=== PATIENT | female | born 1965 | race African-American/Black ===

== ENCOUNTER 2020-05-06 09:30 | Outpatient (CLI) | payer MEDICAID ==
[2020-04-15 17:08] VITALS: BMI 18.9
[~2020-05-06 09:30] MED LIST: CATAPRES0.1 MG PO; IBUPROFEN800 MG PO; MOBIC7.5 MG PO; OMEPRAZOLE20 M1 PO; VENTOLIN HFA [SP8 GM INH
== END 2020-05-06 10:00 | disposition home or self-care (01) ==
LOC: D.MAMMO 09:30
PROVIDERS: ATTEND Family Medicine
DX: R92.8 Other abnormal and inconclusive findings on diagnostic imaging of breast (principal)

== ENCOUNTER 2020-05-15 09:39 | Emergency (ER) | payer MEDICAID ==
[~2020-05-15] VITALS: Ht 162.6 cm; Wt 50.5 kg
[2020-05-15 10:01] VITALS: BP 133/93; Ht 162.6 cm; Wt 50.5 kg
[2020-05-15] MEDS ORDERED: HYDROCHLOROTH12.5 M1 PO (10:03)
[2020-05-15 10:35] LABS: BASOPHILS 0.5 % (0-2); EOSINOPHILS 5.7 % (0-7); HEMATOCRIT 40.1 % (36.0-48.0); HEMOGLOBIN 12.9 g/dL (12-16); IMMATURE GRANULOCYTES 0.2 % (0-5); LYMPHOCYTE ABS# 2.57 10x3/uL (1.18-3.74); LYMPHOCYTES 40.3 % (15-50); MCH 29.2 pg (26.0-34.0); MCHC 32.2 g/dL (31.0-37.0); MCV 90.7 fL (80.0-100.0); MEAN PLATELET VOLUME 9.9 fL (7.4-10.4); MONOCYTES 5.3 % (2-11); NEUTROPHIL ABS# 3.06 10x3/uL (1.56-6.13); PLATELET COUNT 292 10x3/uL (130-400); RBC 4.42 10x6/uL (4.00-5.40); WBC 6.4 10x3/uL (4.8-10.8)
[2020-05-15 10:36] LABS: CALC OSMOLALITY 283 mosm/kg (275-300); CALCIUM 9.8 mg/dL (8.5-10.1); CARBON DIOXIDE 29.5 mmol/L (21.0-32.0); CHLORIDE - SERUM 105 mmol/L (98-107); CREATININE - SERUM 1.2 mg/dL (0.6-1.3); GLUCOSE 98 mg/dL (74-106); SODIUM 139 mmol/L (136-145); UREA NITROGEN 29 mg/dL (7-18); eGFR NON AFRICAN AMERICAN 49 mL/min (90-120)
[2020-05-15 10:39] LABS: APTT 31.9 SECONDS (22.8-39.4); INR 1.06 (0.85-1.17); PROTIME 12.8 SECONDS (11.6-15.0)
[2020-05-15 10:52] LABS: ALBUMIN 3.8 g/dL (3.4-5.0); ALKALINE PHOSPHATASE 71 U/L (30-120); ALT (SGPT) 22 U/L (10-68); BILIRUBIN - TOTAL 0.27 mg/dL (0.2-1.3); CKMB 1.1 U/L (0.0-3.6); CREATINE KINASE 139 UL (21-215); PROTEIN - SERUM 7.5 g/dL (6.4-8.2); TROPONIN-I < 0.017 ng/mL (0.000-0.060)
[2020-05-15] MEDS ORDERED: PREDNISONE20 MG PO (13:08)
== END 2020-05-15 13:22 | disposition home or self-care (01) ==
LOC: D.ER 09:39
PROVIDERS: Family Medicine
DX: M25.532 Pain in left wrist (principal); M25.531 Pain in right wrist; R51.9 Headache, unspecified; I10 Essential (primary) hypertension; J45.909 Unspecified asthma, uncomplicated